=== PATIENT | male | born 1990 | race Caucasian/White ===

== ENCOUNTER 2018-02-03 22:19 | Emergency (ER) | payer BC ==
[~2018-02-03] VITALS: Ht 177.8 cm; Wt 83.9 kg
[~2018-02-03 22:19] MED LIST: KEFLEX500 MG PO; NOHOMEMEDICATIONS
[2018-02-03 22:42] LABS: ABSOLUTE BASOPHILS 0.1 thou/uL (0.0-0.2); ABSOLUTE EOSINOPHILS 0.1 thou/uL (0.0-0.7); ABSOLUTE LYMPHOCYTES 1.5 thou/uL (0.8-5.3); ABSOLUTE MONOCYTES 0.6 thou/uL (0.0-1.2); ABSOLUTE NEUTROPHILS 4.1 thou/uL (1.6-8.1); BASOPHILS 0.9 %; EOSINOPHILS 0.9 %; HEMATOCRIT 42.3 % (42.0-52.0); HEMOGLOBIN 14.3 gm/dL (14.0-18.0); LYMPHOCYTES 23.9 %; MCH 29.4 pg (26.0-34.0); MCHC 33.8 g/dL (28.0-37.0); MCV 86.9 fL (80.0-100.0); MONOCYTES 9.2 %; MPV 8.3 fl. (7.2-11.1); NUCLEATED RBCS 0 /100WBC; PLATELET COUNT* 222 thou/uL (150-400); POLYS 65.1 %; RBC 4.87 mil/uL (4.50-6.00); RDW-CV 13.5 % (10.5-14.5); WBC 6.3 thou/uL (4.0-11.0)
[2018-02-03 22:49] LABS: CALCIUM 8.8 mg/dL (8.5-10.1); CREATININE 0.7 mg/dL (0.6-1.3); POTASSIUM 4.3 mmol/L (3.5-5.1)
[2018-02-03 22:54] LABS: ALBUMIN 4.3 g/dL (3.4-5.0); TOTAL BILIRUBIN 0.6 mg/dL (<0.1-1.0); TOTAL PROTEIN 7.9 g/dL (6.4-8.2)
[2018-02-04] MEDS ORDERED: ZANTAC 150MG T150 MG PO (00:28)
[2018-02-04] MEDS ORDERED: OMEPRAZOLE 20 M20 M1 PO (00:28)
[2018-02-04] MEDS ORDERED: ZOFRAN ODT4 MG PO (00:30)
[2018-02-04 01:10] VITALS: BP 124/89
== END 2018-02-04 01:10 | disposition home or self-care (01) ==
LOC: M.ERS 22:19
PROVIDERS: Nurse Practitioner Family
DX: R10.84 Generalized abdominal pain (principal); F17.210 Nicotine dependence, cigarettes, uncomplicated